=== PATIENT | male | born 1940 | race Caucasian/White ===

== ENCOUNTER 2024-02-07 06:27 | Inpatient (IN) | payer MEDICARE, OTHER ==
[2024-02-04 11:02] LABS: BASOPHILS # (AUTO) 0.1 (0.0-0.1); BASOPHILS % 0.8 % (0.0-1.0); EOSINOPHILS # (AUTO) 0.4 (0.0-0.4); EOSINOPHILS % 5.4 % (0.0-6.0); HEMOGLOBIN 13.4 g/dL (14.0-18.0); LYMPHOCYTES # (AUTO) 1.8 (1.0-3.2); LYMPHOCYTES % 22.4 % (18.0-39.1); MEAN CORPUSCULAR HEMOGLOBIN 29.3 pg (28-32); MEAN CORPUSCULAR HGB CONC 31.9 g/dL (31-35); MEAN CORPUSCULAR VOLUME 91.9 fL (81-99); MONOCYTES # (AUTO) 0.8 (0.2-0.8); MONOCYTES % 10.6 % (4.4-11.3); NEUTROPHILS # (AUTO) 4.8 (2.1-6.9); NEUTROPHILS % 60.5 % (38.7-80.0); PLATELET COUNT 221 x10e3/uL (140-360); RED BLOOD COUNT 4.57 x10e6/uL (4.3-5.7); RED CELL DISTRIBUTION WIDTH 12.7 % (11.7-14.4); WHITE BLOOD COUNT 7.91 x10e3/uL (4.8-10.8)
[2024-02-04 11:17] LABS: ANION GAP 11.3 mmol/L (8-16); CALCIUM 9.4 mg/dL (8.4-10.2); CREATININE, SERUM 1.45 mg/dL (0.72-1.25); POTASSIUM 4.3 mmol/L (3.5-5.1)
[~2024-02-07] VITALS: Ht 188 cm; Wt 87.5 kg
[2024-02-07] MEDS: SODIUM CHLORIDE 0.9% 1000ML 1,000 ML ONE (05:51)
[2024-02-07] MEDS: PIPERACILLIN/TAZOBACTAM 3.375 GM VIAL ONE (05:52)
[2024-02-07] MEDS: GENTAMICIN 80MG/NS 100 ML 200 ML IV ONE (05:54)
[~2024-02-07 06:27] MED LIST: ATORVASTATIN CA20 MG PO; FAMOTIDINE20 MG PO; FINASTERIDE1 MG PO; FLOMAX0.4 MG PO; HYDROCHLOROTHIA25 MG PO; LOSARTAN POTAS100 MG PO; VITAMIN D PO
[2024-02-07] MEDS ORDERED: IOPAMIDOL 610MG/1ML 300 MG/ML VIAL IV ONE (06:44)
[2024-02-07] MEDS: FENTANYL CITRATE/PF 100MCG/2 ML INJ ONE (08:27)
[2024-02-07] MEDS ORDERED: PHENAZOPYRIDINE HCL 100 MG TAB PO PRN (08:45)
[2024-02-07] MEDS ORDERED: ACETAMINOPHEN 1000 MG/100 ML IV PRN (08:45)
[2024-02-07] MEDS: HYDROMORPHONE 1MG/1ML INJ ONE (08:57)
[2024-02-07 09:02] LABS: BASOPHILS # (AUTO) 0.1 (0.0-0.1); BASOPHILS % 0.6 % (0.0-1.0); EOSINOPHILS # (AUTO) 0.5 (0.0-0.4); EOSINOPHILS % 6.4 % (0.0-6.0); HEMATOCRIT 36.4 % (38.2-49.6); HEMOGLOBIN 11.8 g/dL (14.0-18.0); LYMPHOCYTES # (AUTO) 1.6 (1.0-3.2); LYMPHOCYTES % 20.7 % (18.0-39.1); MEAN CORPUSCULAR HEMOGLOBIN 29.6 pg (28-32); MEAN CORPUSCULAR HGB CONC 32.4 g/dL (31-35); MEAN CORPUSCULAR VOLUME 91.2 fL (81-99); MONOCYTES # (AUTO) 0.5 (0.2-0.8); MONOCYTES % 6.2 % (4.4-11.3); NEUTROPHILS # (AUTO) 5.1 (2.1-6.9); NEUTROPHILS % 65.3 % (38.7-80.0); PLATELET COUNT 164 x10e3/uL (140-360); RED BLOOD COUNT 3.99 x10e6/uL (4.3-5.7); RED CELL DISTRIBUTION WIDTH 12.6 % (11.7-14.4); WHITE BLOOD COUNT 7.79 x10e3/uL (4.8-10.8)
[2024-02-07 10:11] LABS: ANION GAP 12.7 mmol/L (8-16); CALCIUM 8.3 mg/dL (8.4-10.2); CREATININE, SERUM 1.35 mg/dL (0.72-1.25); POTASSIUM 3.7 mmol/L (3.5-5.1)
[2024-02-07] MEDS: SENNA-S TABLET PO SCH (11:17)
[2024-02-07] MEDS: ONDANSETRON HCL INJ 2MG/ML 2ML 2 MG/ML VIAL IV PRN (11:17)
[2024-02-07] MEDS: DIPHENHYDRAMINE HCL 25 MG CAP PO PRN (11:17)
[2024-02-07] MEDS: SODIUM CHLORIDE 0.9% 1000ML 1,000 ML IV SCH (11:18)
[2024-02-07] MEDS: ACETAMINOPHEN/CODEINE 300MG - 30MG TAB PO PRN (11:39)
[2024-02-07] MEDS ORDERED: FENTANYL CITRATE/PF 100MCG/2 ML INJ ONE (11:55)
[2024-02-07 12:00] VITALS: BP 149/77; PULSE 67; RESP 17; O2SAT 98
[2024-02-07] MEDS ORDERED: ACETAMINOPHEN 325 MG TAB PO PRN (12:00)
[2024-02-07] MEDS ORDERED: PROPOFOL IV EMULSION 10 MG/ML 20 ML VIAL ONE (12:13)
[2024-02-07] MEDS ORDERED: DEXAMETHASONE SOD PHOS INJ 4 MG/ML SDV ONE (12:13)
[2024-02-07] MEDS ORDERED: ONDANSETRON HCL INJ 2MG/ML 2ML 2 MG/ML VIAL ONE (12:13)
[2024-02-07] MEDS ORDERED: PHENYLEPHRINE HCL 1% 10 MG/ML VIAL ONE (12:13)
[2024-02-07] MEDS ORDERED: SEVOFLURANE INHAL SOLN 250 ML PEN BTL ONE (12:13)
[2024-02-07] MEDS ORDERED: EPHEDRINE SULFATE INJ 50 MG/ML VIAL ONE (12:13)
[2024-02-07] MEDS ORDERED: LIDOCAINE HCL 2% LOCAL INJ 5 ML SDV VIAL INJ ONE (12:13)
[2024-02-07 15:14] VITALS: PULSE 65; RESP 16; O2SAT 98
[2024-02-07 16:00] VITALS: BP 129/65; PULSE 72; RESP 17; TEMP 97.5; O2SAT 100
[2024-02-07] MEDS: FAMOTIDINE 20 MG TAB PO SCH (16:38)
[2024-02-07 19:55] VITALS: PULSE 72; RESP 16; O2SAT 99
[2024-02-07 20:00] VITALS: BP 129/74; PULSE 71; RESP 20; TEMP 97.8; O2SAT 100
[2024-02-07] MEDS: ATORVASTATIN 20 MG TAB PO SCH (21:01)
[2024-02-07 23:14] VITALS: BP 129/74; PULSE 83; RESP 20; TEMP 97.8; O2SAT 100
[2024-02-08] VITALS (11 sets, daily range): BP systolic 104–140; BP diastolic 64–70; PULSE 65–83; RESP 16–20; TEMP 97.7–98; O2SAT 95–100
[2024-02-08] MEDS ORDERED: PIPERACILLIN/TAZOBACTAM SOD 2.25 GM VIAL ONE (03:23)
[2024-02-08 06:00] LABS: BASOPHILS % 0.1 % (0.0-1.0); EOSINOPHILS % 0.1 % (0.0-6.0); HEMATOCRIT 35.2 % (38.2-49.6); HEMOGLOBIN 11.2 g/dL (14.0-18.0); LYMPHOCYTES # (AUTO) 1.2 (1.0-3.2); LYMPHOCYTES % 8.9 % (18.0-39.1); MEAN CORPUSCULAR HEMOGLOBIN 28.9 pg (28-32); MEAN CORPUSCULAR HGB CONC 31.8 g/dL (31-35); MONOCYTES # (AUTO) 1.3 (0.2-0.8); MONOCYTES % 9.6 % (4.4-11.3); NEUTROPHILS # (AUTO) 11.2 (2.1-6.9); NEUTROPHILS % 80.7 % (38.7-80.0); PLATELET COUNT 191 x10e3/uL (140-360); RED BLOOD COUNT 3.87 x10e6/uL (4.3-5.7); RED CELL DISTRIBUTION WIDTH 12.6 % (11.7-14.4); WHITE BLOOD COUNT 13.87 x10e3/uL (4.8-10.8)
[2024-02-08 06:36] LABS: ANION GAP 11.2 mmol/L (8-16); CALCIUM 8.2 mg/dL (8.4-10.2); CREATININE, SERUM 1.36 mg/dL (0.72-1.25); POTASSIUM 4.2 mmol/L (3.5-5.1)
[2024-02-08] MEDS: LOSARTAN POTASSIUM 100 MG TAB PO SCH (09:09)
[2024-02-08] MEDS: TAMSULOSIN HCL 0.4 MG CAP PO SCH (09:09)
[2024-02-08] MEDS: METOPROLOL TARTRATE 50 MG TAB PO SCH (17:21)
[2024-02-09] VITALS (8 sets, daily range): BP systolic 122–152; BP diastolic 66–76; PULSE 61–73; RESP 16–19; TEMP 97.8–98.5; O2SAT 98–100
[2024-02-09 05:05] LABS: BASOPHILS # (AUTO) 0.1 (0.0-0.1); BASOPHILS % 0.5 % (0.0-1.0); EOSINOPHILS # (AUTO) 0.5 (0.0-0.4); EOSINOPHILS % 3.6 % (0.0-6.0); HEMATOCRIT 33.3 % (38.2-49.6); HEMOGLOBIN 10.8 g/dL (14.0-18.0); LYMPHOCYTES # (AUTO) 2.8 (1.0-3.2); LYMPHOCYTES % 22.6 % (18.0-39.1); MEAN CORPUSCULAR HEMOGLOBIN 29.7 pg (28-32); MEAN CORPUSCULAR HGB CONC 32.4 g/dL (31-35); MEAN CORPUSCULAR VOLUME 91.5 fL (81-99); MONOCYTES # (AUTO) 1.1 (0.2-0.8); MONOCYTES % 8.7 % (4.4-11.3); NEUTROPHILS % 64.1 % (38.7-80.0); PLATELET COUNT 181 x10e3/uL (140-360); RED BLOOD COUNT 3.64 x10e6/uL (4.3-5.7); WHITE BLOOD COUNT 12.51 x10e3/uL (4.8-10.8)
[2024-02-09 05:27] LABS: CALCIUM 8.4 mg/dL (8.4-10.2); CREATININE, SERUM 1.32 mg/dL (0.72-1.25)
[2024-02-09] MEDS ORDERED: ONDANSETRON HCL 4 MG ORAL DISINTEGRATING TAB PO PRN (13:15)
[2024-02-10] VITALS (9 sets, daily range): BP systolic 133–158; BP diastolic 60–76; PULSE 59–76; RESP 16–20; TEMP 97.4–98.9; O2SAT 95–100
[2024-02-10 06:08] LABS: BASOPHILS # (AUTO) 0.1 (0.0-0.1); BASOPHILS % 0.4 % (0.0-1.0); EOSINOPHILS # (AUTO) 0.6 (0.0-0.4); EOSINOPHILS % 5.3 % (0.0-6.0); HEMATOCRIT 34.1 % (38.2-49.6); HEMOGLOBIN 10.9 g/dL (14.0-18.0); LYMPHOCYTES # (AUTO) 2.7 (1.0-3.2); LYMPHOCYTES % 23.1 % (18.0-39.1); MEAN CORPUSCULAR HEMOGLOBIN 29.2 pg (28-32); MEAN CORPUSCULAR VOLUME 91.4 fL (81-99); MONOCYTES # (AUTO) 1.1 (0.2-0.8); MONOCYTES % 9.5 % (4.4-11.3); NEUTROPHILS # (AUTO) 7.2 (2.1-6.9); NEUTROPHILS % 61.2 % (38.7-80.0); PLATELET COUNT 172 x10e3/uL (140-360); RED BLOOD COUNT 3.73 x10e6/uL (4.3-5.7); RED CELL DISTRIBUTION WIDTH 12.9 % (11.7-14.4); WHITE BLOOD COUNT 11.84 x10e3/uL (4.8-10.8)
[2024-02-10 06:40] LABS: ANION GAP 7.7 mmol/L (8-16); CALCIUM 8.8 mg/dL (8.4-10.2); CREATININE, SERUM 1.28 mg/dL (0.72-1.25); POTASSIUM 3.7 mmol/L (3.5-5.1)
[2024-02-10] MEDS ORDERED: LOSARTAN POTASSIUM 25 MG TAB PO SCH (17:30)
[2024-02-11] VITALS (7 sets, daily range): BP systolic 137–157; BP diastolic 58–78; PULSE 64–70; RESP 15–22; TEMP 97.8–98.6; O2SAT 96–100
[2024-02-11 05:45] LABS: BASOPHILS % 0.4 % (0.0-1.0); EOSINOPHILS # (AUTO) 0.6 (0.0-0.4); EOSINOPHILS % 5.5 % (0.0-6.0); HEMATOCRIT 34.7 % (38.2-49.6); LYMPHOCYTES # (AUTO) 2.7 (1.0-3.2); LYMPHOCYTES % 23.9 % (18.0-39.1); MEAN CORPUSCULAR HGB CONC 31.7 g/dL (31-35); MEAN CORPUSCULAR VOLUME 91.6 fL (81-99); MONOCYTES # (AUTO) 1.2 (0.2-0.8); MONOCYTES % 10.6 % (4.4-11.3); NEUTROPHILS # (AUTO) 6.6 (2.1-6.9); NEUTROPHILS % 59.1 % (38.7-80.0); PLATELET COUNT 189 x10e3/uL (140-360); RED BLOOD COUNT 3.79 x10e6/uL (4.3-5.7); RED CELL DISTRIBUTION WIDTH 12.9 % (11.7-14.4); WHITE BLOOD COUNT 11.23 x10e3/uL (4.8-10.8)
[2024-02-11 06:37] LABS: ANION GAP 8.5 mmol/L (8-16); CALCIUM 8.5 mg/dL (8.4-10.2); CREATININE, SERUM 1.24 mg/dL (0.72-1.25); POTASSIUM 3.5 mmol/L (3.5-5.1)
[2024-02-11] MEDS: LOSARTAN POTASSIUM 100 MG TAB PO SCH (09:34)
== END 2024-02-11 17:50 | disposition home or self-care (01) | DRG 713 ==
LOC: OR 06:27 → PACU V 08:35 → MED/SURG2 10:49
PROVIDERS: ADMIT Internal Medicine; ATTEND Internal Medicine
PROC: BT141ZZ Fluoroscopy of Kidneys, Ureters and Bladder using Low Osmolar Contrast (ICD-10-PCS; 2024-02-07)
PROC: 0VB08ZZ Excision of Prostate, Via Natural or Artificial Opening Endoscopic (ICD-10-PCS; principal; 2024-02-07 07:04)
PROC: 0VB03ZX Excision of Prostate, Percutaneous Approach, Diagnostic (ICD-10-PCS; 2024-02-07 07:04)
DX: C61 Malignant neoplasm of prostate (principal); E87.29 Other acidosis; D72.829 Elevated white blood cell count, unspecified; I12.9 Hypertensive chronic kidney disease with stage 1 through stage 4 chronic kidney disease, or unspecified chronic kidney disease; N18.31 Chronic kidney disease, stage 3a; E78.00 Pure hypercholesterolemia, unspecified; N40.0 Benign prostatic hyperplasia without lower urinary tract symptoms; R31.9 Hematuria, unspecified; Z82.49 Family history of ischemic heart disease and other diseases of the circulatory system; Z80.8 Family history of malignant neoplasm of other organs or systems
CPT/HCPCS: 36415; 51700; 71046; 74420; 76872; 76998; 80048; 83036; 83735; 85025; 88305; 93005; 94799; C1758; J1100; J1170; J1580; J2001; J2371; J2405; J2543; J7030

== ENCOUNTER 2024-02-12 04:48 | Emergency (ER) | payer MEDICARE, OTHER ==
[~2024-02-12] VITALS: Ht 188 cm; Wt 87.5 kg
[2024-02-12 05:06] VITALS: PULSE 103; RESP 22; TEMP 98.5
[2024-02-12 05:45] VITALS: BP 158/83; PULSE 94; RESP 17; TEMP 98.4; O2SAT 99
== END 2024-02-12 05:53 | disposition home or self-care (01) ==
LOC: ER 04:55
DX: R33.9 Retention of urine, unspecified (principal); N40.0 Benign prostatic hyperplasia without lower urinary tract symptoms; I10 Essential (primary) hypertension
CPT/HCPCS: 51700; 87086; 99282

== ENCOUNTER 2024-08-02 08:22 | Inpatient (IN) | payer MEDICARE, OTHER ==
[2024-07-31 11:34] LABS: BASOPHILS # (AUTO) 0.1 (0.0-0.1); BASOPHILS % 0.7 % (0.0-1.0); EOSINOPHILS # (AUTO) 0.4 (0.0-0.4); EOSINOPHILS % 5.3 % (0.0-6.0); HEMOGLOBIN 13.6 g/dL (14.0-18.0); LYMPHOCYTES # (AUTO) 2.1 (1.0-3.2); LYMPHOCYTES % 26.1 % (18.0-39.1); MEAN CORPUSCULAR HEMOGLOBIN 28.9 pg (28-32); MEAN CORPUSCULAR HGB CONC 33.2 g/dL (31-35); MONOCYTES # (AUTO) 0.9 (0.2-0.8); NEUTROPHILS # (AUTO) 4.6 (2.1-6.9); NEUTROPHILS % 56.5 % (38.7-80.0); PLATELET COUNT 231 x10e3/uL (140-360); RED BLOOD COUNT 4.71 x10e6/uL (4.3-5.7); RED CELL DISTRIBUTION WIDTH 12.7 % (11.7-14.4); WHITE BLOOD COUNT 8.17 x10e3/uL (4.8-10.8)
[2024-07-31 11:57] LABS: ANION GAP 15.6 mmol/L (8-16); CALCIUM 10.5 mg/dL (8.4-10.2); CREATININE, SERUM 1.54 mg/dL (0.72-1.25); POTASSIUM 4.6 mmol/L (3.5-5.1)
[2024-08-02] VITALS (7 sets, daily range): BP systolic 148–160; BP diastolic 82–85; PULSE 78–82; RESP 18; TEMP 97.6–98.6; O2SAT 98–100
[~2024-08-02] VITALS: Ht 188 cm; Wt 89.4 kg
[~2024-08-02 08:22] MED LIST changes: +CALCIUM CITRAT250 MG PO
[2024-08-02] MEDS: CEFTRIAXONE 1 GM VIAL ONE ×2 (09:46→15:27)
[2024-08-02] MEDS: SODIUM CHLORIDE 0.9% 1000ML 1,000 ML ONE (09:46)
[2024-08-02] MEDS: GENTAMICIN 80MG/NS 100 ML 200 ML IV ONE (09:47)
[2024-08-02] MEDS ORDERED: PROPOFOL IV EMULSION 10 MG/ML 20 ML VIAL ONE (11:10)
[2024-08-02] MEDS ORDERED: FENTANYL CITRATE/PF 100MCG/2 ML INJ ONE (11:10)
[2024-08-02] MEDS ORDERED: ACETAMINOPHEN 1000 MG/100 ML 100 ML IV ONE (11:10)
[2024-08-02] MEDS ORDERED: SEVOFLURANE INHAL SOLN 250 ML PEN BTL ONE (11:10)
[2024-08-02] MEDS ORDERED: LIDOCAINE HCL 2% LOCAL INJ 5 ML SDV VIAL INJ ONE (11:10)
[2024-08-02] MEDS ORDERED: FAMOTIDINE 20 MG/2 ML VIAL IV ONE (12:14)
[2024-08-02] MEDS ORDERED: ONDANSETRON HCL INJ 2MG/ML 2ML 2 MG/ML VIAL ONE (12:14)
[2024-08-02] MEDS ORDERED: DEXAMETHASONE SOD PHOS INJ 4 MG/ML SDV ONE (12:14)
[2024-08-02] MEDS ORDERED: METOCLOPRAMIDE HCL 10 MG/2ML VIAL ONE (12:14)
[2024-08-02] MEDS ORDERED: EPHEDRINE SULFATE INJ 50 MG/ML VIAL ONE (12:21)
[2024-08-02] MEDS: FENTANYL CITRATE/PF 100MCG/2 ML INJ ONE (13:20)
[2024-08-02] MEDS ORDERED: DIPHENHYDRAMINE HCL 25 MG CAP PO PRN (13:45)
[2024-08-02] MEDS ORDERED: ACETAMINOPHEN 1000 MG/100 ML IV PRN (13:45)
[2024-08-02] MEDS ORDERED: ONDANSETRON HCL INJ 2MG/ML 2ML 2 MG/ML VIAL IV PRN (13:45)
[2024-08-02] MEDS ORDERED: PHENAZOPYRIDINE HCL 100 MG TAB PO PRN (13:45)
[2024-08-02] MEDS ORDERED: ACETAMINOPHEN/CODEINE 300MG - 30MG TAB PO PRN (13:45)
[2024-08-02 14:20] LABS: BASOPHILS # (AUTO) 0.1 (0.0-0.1); BASOPHILS % 0.4 % (0.0-1.0); EOSINOPHILS # (AUTO) 0.3 (0.0-0.4); EOSINOPHILS % 2.2 % (0.0-6.0); HEMATOCRIT 37.7 % (38.2-49.6); HEMOGLOBIN 12.5 g/dL (14.0-18.0); LYMPHOCYTES # (AUTO) 1.5 (1.0-3.2); LYMPHOCYTES % 13.4 % (18.0-39.1); MEAN CORPUSCULAR HEMOGLOBIN 29.1 pg (28-32); MEAN CORPUSCULAR HGB CONC 33.2 g/dL (31-35); MEAN CORPUSCULAR VOLUME 87.7 fL (81-99); MONOCYTES # (AUTO) 0.4 (0.2-0.8); MONOCYTES % 3.2 % (4.4-11.3); NEUTROPHILS # (AUTO) 9.1 (2.1-6.9); NEUTROPHILS % 80.2 % (38.7-80.0); PLATELET COUNT 204 x10e3/uL (140-360); RED CELL DISTRIBUTION WIDTH 12.7 % (11.7-14.4); WHITE BLOOD COUNT 11.34 x10e3/uL (4.8-10.8)
[2024-08-02 14:52] LABS: ANION GAP 12.6 mmol/L (8-16); CALCIUM 8.6 mg/dL (8.4-10.2); CREATININE, SERUM 1.19 mg/dL (0.72-1.25); POTASSIUM 3.6 mmol/L (3.5-5.1)
[2024-08-02] MEDS: SODIUM CHLORIDE 0.9% 1000ML 1,000 ML IV SCH (15:34)
[2024-08-02] MEDS: SENNA-S TABLET PO SCH (16:15)
[2024-08-03] VITALS (7 sets, daily range): BP systolic 130–155; BP diastolic 72–80; PULSE 61–84; RESP 18–20; TEMP 97.8–98.5; O2SAT 99–100
[2024-08-03 05:09] LABS: BASOPHILS # (AUTO) 0.1 (0.0-0.1); BASOPHILS % 0.5 % (0.0-1.0); EOSINOPHILS % 0.2 % (0.0-6.0); HEMATOCRIT 39.1 % (38.2-49.6); HEMOGLOBIN 13.3 g/dL (14.0-18.0); LYMPHOCYTES # (AUTO) 0.9 (1.0-3.2); LYMPHOCYTES % 7.6 % (18.0-39.1); MEAN CORPUSCULAR HEMOGLOBIN 29.7 pg (28-32); MEAN CORPUSCULAR VOLUME 87.3 fL (81-99); MONOCYTES # (AUTO) 0.7 (0.2-0.8); MONOCYTES % 5.6 % (4.4-11.3); NEUTROPHILS # (AUTO) 10.6 (2.1-6.9); NEUTROPHILS % 85.4 % (38.7-80.0); PLATELET COUNT 227 x10e3/uL (140-360); RED BLOOD COUNT 4.48 x10e6/uL (4.3-5.7); RED CELL DISTRIBUTION WIDTH 12.5 % (11.7-14.4); WHITE BLOOD COUNT 12.45 x10e3/uL (4.8-10.8)
[2024-08-03 05:45] LABS: ANION GAP 11.9 mmol/L (8-16); CALCIUM 8.6 mg/dL (8.4-10.2); CREATININE, SERUM 1.25 mg/dL (0.72-1.25); POTASSIUM 3.9 mmol/L (3.5-5.1)
[2024-08-03] MEDS: FINASTERIDE 5 MG TAB PO SCH (09:08)
[2024-08-03] MEDS: FAMOTIDINE 20 MG TAB PO SCH (09:08)
[2024-08-03] MEDS: TAMSULOSIN HCL 0.4 MG CAP PO SCH (09:09)
[2024-08-03] MEDS: LOSARTAN POTASSIUM 100 MG TAB PO SCH (09:11)
[2024-08-03] MEDS: ATORVASTATIN 20 MG TAB PO SCH (21:14)
[2024-08-04] VITALS (7 sets, daily range): BP systolic 136–190; BP diastolic 66–83; PULSE 70–91; RESP 16–18; TEMP 97.2–98.2; O2SAT 98–100
[2024-08-04 05:08] LABS: BASOPHILS # (AUTO) 0.1 (0.0-0.1); BASOPHILS % 0.6 % (0.0-1.0); EOSINOPHILS # (AUTO) 1.1 (0.0-0.4); EOSINOPHILS % 8.6 % (0.0-6.0); HEMATOCRIT 35.6 % (38.2-49.6); HEMOGLOBIN 11.8 g/dL (14.0-18.0); LYMPHOCYTES # (AUTO) 2.2 (1.0-3.2); LYMPHOCYTES % 17.9 % (18.0-39.1); MEAN CORPUSCULAR HEMOGLOBIN 29.4 pg (28-32); MEAN CORPUSCULAR HGB CONC 33.1 g/dL (31-35); MEAN CORPUSCULAR VOLUME 88.8 fL (81-99); MONOCYTES % 8.5 % (4.4-11.3); NEUTROPHILS # (AUTO) 7.8 (2.1-6.9); NEUTROPHILS % 63.8 % (38.7-80.0); PLATELET COUNT 193 x10e3/uL (140-360); RED BLOOD COUNT 4.01 x10e6/uL (4.3-5.7); WHITE BLOOD COUNT 12.27 x10e3/uL (4.8-10.8)
[2024-08-04 05:31] LABS: ANION GAP 11.6 mmol/L (8-16); CALCIUM 8.3 mg/dL (8.4-10.2); CREATININE, SERUM 1.19 mg/dL (0.72-1.25); POTASSIUM 3.6 mmol/L (3.5-5.1)
== END 2024-08-04 21:00 | disposition home or self-care (01) | DRG 713 ==
LOC: OR 08:22 → PACU V 13:40 → MED/SURG 14:35
PROVIDERS: ADMIT Urology; ATTEND Urology
PROC: 0T9B70Z Drainage of Bladder with Drainage Device, Via Natural or Artificial Opening (ICD-10-PCS; 2024-08-02)
PROC: BT141ZZ Fluoroscopy of Kidneys, Ureters and Bladder using Low Osmolar Contrast (ICD-10-PCS; 2024-08-02)
PROC: 0V508ZZ Destruction of Prostate, Via Natural or Artificial Opening Endoscopic (ICD-10-PCS; principal; 2024-08-02 12:09)
PROC: 0T7D3ZZ Dilation of Urethra, Percutaneous Approach (ICD-10-PCS; 2024-08-02 12:09)
DX: N40.1 Benign prostatic hyperplasia with lower urinary tract symptoms (principal); N13.8 Other obstructive and reflux uropathy; N39.0 Urinary tract infection, site not specified; I12.9 Hypertensive chronic kidney disease with stage 1 through stage 4 chronic kidney disease, or unspecified chronic kidney disease; R31.0 Gross hematuria; N18.9 Chronic kidney disease, unspecified; D64.9 Anemia, unspecified; N35.912 Unspecified bulbous urethral stricture, male; E78.5 Hyperlipidemia, unspecified; R33.8 Other retention of urine; N32.81 Overactive bladder; K21.9 Gastro-esophageal reflux disease without esophagitis; Z87.440 Personal history of urinary (tract) infections; Z85.46 Personal history of malignant neoplasm of prostate
CPT/HCPCS: 36415; 74420; 80048; 83735; 85025; 93005; 94799; J0696; J1100; J1580; J2003; J2405; J2765; J7030